=== PATIENT | female | born 1970 | race Caucasian/White ===

== ENCOUNTER 2017-10-28 16:55 | Inpatient (IN) | payer SELFPAY ==
[~2017-10-28] VITALS: Ht 154.9 cm; Wt 75.0 kg
[~2017-10-28 16:55] MED LIST: CELEBREX100 MG PO; CELEBREX200 MG PO; CYMBALTA60 MG PO; FLEXERIL10 MG PO; NIACIN500 M4 PO; PERCOCET 10/1 TABLET PO; PERCOCET 5/31 TABLET PO; PRILOSEC20 MG PO; PROAIR HFA8.5 GM IH; PYRIDIUM100 MG PO; WELLBUTRIN XL300 MG PO; XANAX0.25 MG PO; XANAX0.5 MG PO; ZOCOR40 MG PO
[2017-10-28 17:26] LABS: HEMATOCRIT 38.8 % (36.0-46.0); HEMOGLOBIN 13.4 G/DL (11.9-15.5); MCH 29.9 PG (29.0-34.0); MCHC 34.5 G/DL (30.0-36.0); MCV 86.6 FL (83-99); PLATELET COUNT 255 K/uL (156-360); RBC DIS.WIDTH-CV 13.7 % (11.8-14.6); RBC DIS.WIDTH-SD 43.8 % (39-53); RED BLOOD COUNT 4.48 M/uL (3.80-5.20); WHITE BLOOD COUNT 7.2 K/uL (4.1-10.2)
[2017-10-28 17:46] LABS: CHLORIDE 100 mEq/L (99-109); POTASSIUM 3.6 mEq/L (3.7-5.4); SODIUM 137 mEq/L (136-147)
[2017-10-28 17:48] LABS: GLUCOSE 60 mg/dL (70-99)
[2017-10-28 17:52] LABS: GFR ESTIMATE (CALCULATED) > 59 mL/min/
[2017-10-28 17:53] LABS: UREA NITROGEN (BUN) 10 mg/dL (9-23)
[2017-10-28 17:56] LABS: TROP-I INTERPRETATION NEGATIVE; TROPONIN-I < 0.01 ng/mL (0.0-0.30)
[2017-10-28] MEDS ORDERED: HYDROCHLOROTHIA25 MG PO (19:35)
[2017-10-28] MEDS ORDERED: CRESTOR10 MG PO (19:35)
[2017-10-28] MEDS ORDERED: SAXENDA3 MG/0.5 M SC (19:35)
[2017-10-28 20:18] VITALS: BP 144/76
[2017-10-28 22:15] VITALS: BP 148/76
[2017-10-29 01:16] LABS: TROP-I INTERPRETATION NEGATIVE; TROPONIN-I < 0.01 ng/mL (0.0-0.30)
[2017-10-29 03:42] VITALS: BP 115/58
[2017-10-29 07:35] VITALS: BP 114/56
[2017-10-29 09:26] LABS: TROP-I INTERPRETATION NEGATIVE; TROPONIN-I < 0.01 ng/mL (0.0-0.30)
[2017-10-29 11:48] VITALS: BP 139/63
[2017-10-29] MEDS ORDERED: AMOX TR-K CLV1 EAC4 PO (14:10)
== END 2017-10-29 15:47 | disposition home or self-care (01) | DRG 313 ==
LOC: EME 16:55 → EDOF 18:30 → ENRESERV 19:07 → 4EAST 20:13
PROVIDERS: Emergency Medicine; Family Medicine
DX: R07.89 Other chest pain (principal); R94.31 Abnormal electrocardiogram [ECG] [EKG]; J01.00 Acute maxillary sinusitis, unspecified; I10 Essential (primary) hypertension; E78.2 Mixed hyperlipidemia; F32.9 Major depressive disorder, single episode, unspecified; F41.0 Panic disorder [episodic paroxysmal anxiety]; K21.9 Gastro-esophageal reflux disease without esophagitis; M79.7 Fibromyalgia; G89.4 Chronic pain syndrome; J45.909 Unspecified asthma, uncomplicated; F17.290 Nicotine dependence, other tobacco product, uncomplicated; E66.9 Obesity, unspecified; Z68.32 Body mass index [BMI] 32.0-32.9, adult
CPT/HCPCS: 70450; 80048; 84484; 85027; 93005; 99281; 99285